=== PATIENT | female | born 1995 | race African-American/Black ===

== ENCOUNTER 2024-10-01 23:56 | Emergency (ER) | payer MEDICAID ==
[~2024-10-01] VITALS: Ht 165.1 cm; Wt 91.0 kg
[2024-10-02 00:03] VITALS: O2SAT 98
[2024-10-02 00:18] VITALS: TEMP 36.7; O2SAT 99
[2024-10-02] MEDS ORDERED: NAPR-1176 MT (02:31)
[2024-10-02] MEDS ORDERED: LIDO-53 TP (02:31)
[2024-10-02 03:16] VITALS: BP 141/81; PULSE 76; RESP 18
[2024-10-02] MEDS: KETOROLAC 15MG/ML VIAL IM ONE (03:16)
== END 2024-10-02 03:17 | disposition home or self-care (01) ==
LOC: ER 23:56
DX: M25.532 Pain in left wrist (principal); Z79.1 Long term (current) use of non-steroidal anti-inflammatories (NSAID)
CPT/HCPCS: 99283; 73110; 96372; J1885